=== PATIENT | male | born 1985 | race Caucasian/White ===

== ENCOUNTER 2022-11-03 18:23 | Emergency (ER) | payer OTHER, SELFPAY ==
[2022-11-03 18:26] VITALS: BP 125/68; PULSE 85; RESP 18; O2SAT 100; BMI 27.3
--- NOTE | 2022-11-03 18:26 | ED_ITS ---
HPI - General Adult General Chief complaint: Urogenital-Male Stated complaint: ?std Time Seen by Provider: 11/03/22 18:34 Source: patient Mode of arrival: ambulatory Limitations: no limitations History of Present Illness HPI narrative: 37-year-old male presents to the emergency department seeking STD testing and treatment, tells me he has a weird rash/lesion on his penis. He tells me he is sexually active without protection with a sexual partner, unsure of her STD status. Patient has a history of chlamydia in the past. Denies urinary frequency, urgency, dysuria, fevers, chills, back pain, nausea, vomiting, abdominal pain. Partner without any symptoms. Patient interested in prophylactic treatment for gonorrhea, chlamydia and Trichomonas. Related Data Previous Rx's Medication Instructions Recorded doxycycline hyclate 100 mg capsule 100 mg PO BID 10 days #20 caps 11/03/22 metronidazole 500 mg tablet 500 mg PO BID 7 days #14 tabs 11/03/22 valacyclovir 1 gram tablet 1,000 mg PO TID 10 days #30 tabs 11/03/22 (Valtrex) Allergies Allergy/AdvReac Type Severity Reaction Status Date / Time No Known Allergies Allergy Unverified 06/11/20 17:45 [No Known Allergies*] Review of Systems Review of Systems: Constitutional : No Weight loss, No Fever, No Chills, No Fatigue, No Malaise ENT/Mouth : No sore throat, No Rhinorrhea Eyes: No Eye Pain, No Swelling, No Redness Cardiovascular : No Chest Pain, No SOB, No Dyspnea on Exertion, No Orthopnea, No Edema, No Palpitations Respiratory : No Cough, No Sputum, No Wheezing Gastrointestinal : No Nausea, No Vomiting, No Diarrhea, No Constipation, No abdominal Pain, No Hematochezia, No Melena Genitourinary : No Dysuria, No Urinary Frequency, No Hematuria, Musculoskeletal : No joint pain, No Myalgias, No Joint Swelling Skin : No Skin Lesions, No rash, + lesion on penis Neuro : No Weakness, No Numbness, No Dizziness, No Headache Psych : No Anxiety/Panic, No Depression All other systems reviewed and are negative Yes all other systems are reviewed and are negative PMFSH Past Medical History Attestation statement: The following information was validated with the patient. Source: old records reviewed and nursing notes reviewed Physical Exam ED Vital Signs: Vital Signs - 24 hr 11/03/22 18:26 Pulse Rate 85 Respiratory Rate 18 Blood Pressure 125/68 Pulse Oximetry 100 Oxygen Delivery Method Room Air BMI result Body Mass Index 27.3 Appearance: Alert.? Oriented X3.? No acute distress.? Head: Normocephalic, atraumatic, no step-offs or deformities Eyes: Pupils equal, round and reactive to light.? CVS: Normal heart rate and rhythm.? Pulses normal.? Respiratory: No respiratory distress.? Breath sounds normal.? Abdomen: Soft and nontender.? Skin: Skin warm and dry.? Normal skin color.? Normal skin turgor.? Extremities: No lower extremity edema.? No calf ttp. 5/5 strength to bilateral upper and lower extremities Back: No midline tenderness, no C-spine tenderness, full range of motion, no CVA tenderness bilaterally Neuro: Oriented X 3.? No motor deficit.? No sensory deficit. CN 2-12 intact Sensitive exam: Nasreen SORIANO head of strategy, small ulcer noted to shaft of penis . Normal external genitalia. No lumps, masses or discharge. No pain with palpation of bilateral testicles, no epididymal tenderness. Course Reevaluation(s) Reevaluation #1: Patient received antibiotics here 1st dose, he can start his antibiotics tomorrow. Tolerated well. Urine sent for analysis. Educated patient on diagnosis and treatment plan, answered all question, patient verbalizes understanding. At this time patient will be discharged home, advised to return with new or worsening symptoms. Educated on worrisome signs and symptoms and when to return. At this time I feel comfortable discharge home. Time: 18:33 Medications Administered Discontinued Medications Generic Name Dose Route Start Last Admin Trade Name Gareth PRN Reason Stop Dose Admin Ceftriaxone Sodium 500 mg/ 0 mg 11/03/22 18:27 11/03/22 18:36 Lidocaine HCl 1 ml IM 11/03/22 18:28 1 kit ONCE ONE Administration Doxycycline Monohydrate 100 mg 11/03/22 18:27 11/03/22 18:35 Doxycycline Monohydrate 100 Mg Capsule PO 11/03/22 18:28 100 mg ONCE ONE Administration Metronidazole 500 mg 11/03/22 18:27 11/03/22 18:35 Metronidazole 500 Mg Tablet PO 11/03/22 18:28 500 mg ONCE ONE Administration Medical Decision Making Medical Decision Making MDM Narrative: 37-year-old male presents requesting STD testing and treatment. Physical examination small ulcer to his shaft of penis. No other findings Concerns for possibl STD , versus just traumatic abrasion. Plan at this time STD testing. Patient agrees to prophylactic treatment for gonorrhea, chlamydia and trichomonas. 500mg IM ceftriaxone has been given here and scripts for doxycycline 100 mg po BID X 7 days and metronidazole 500 mg po BID X 7 days have been given to the patient. Educated on safe sex practices, full pannel STD testing and speaking to? partners on possible STD. I will also treat for herpes as patient's exam is concerning for this. Differential Diagnosis Differential Diagnoses: The differential diagnosis associated with the presentation includes Concerns for possibl STD , versus just traumatic abrasion. Herpes Core Measures AMI core measures followed: Yes Measure exclusions: not indicated Critical Care Time Critical Care Time Critical Care Time: No Discharge Plan Discharge Clinical Impression: Screen for STD (sexually transmitted disease) Patient Disposition: Home, Self-Care Additional Instructions: Take your medications as prescribed. If you were prescribed antibiotics today, it is important that you take your medication to their entirety, do not skip any doses, do not finish them early. Follow-up with your primary care provider this week. Return to the emergency department with new or worsening symptoms. Such as fevers, chills, chest pain, shortness of breath, nausea, vomiting, dizziness, headache, vision changes, lethargy In case of emergency call 911 You were treated here today with ceftriaxone, a medication that treats gonorrhea. I have sent to your pharmacy Metronidazole that covers trichomonas, and Doxycycline which covers for chlamydia. Please be reevaluated by a healthcare provider after completing your antibiotics. Do not stop them early, do not skip any doses. Until you are reevaluated by a health care provider please practice safe sex as disucussed. Please also have a conversation with your sexual partners.? I also advise you to obtain full panel STD testing to test for other STDs including HIV, Hepatitis B & C and syphilis with your PCP or a local clinic. Prescriptions: New doxycycline hyclate 100 mg capsule 100 mg PO BID 10 Days Qty: 20 0RF metronidazole 500 mg tablet 500 mg PO BID 7 Days Qty: 14 0RF valacyclovir [Valtrex] 1 gram tablet 1,000 mg PO TID 10 Days Qty: 30 0RF Referrals: Physician,None [Primary Care Provider] - 2 days Stand Alone Forms: Work/School Release
[2022-11-03] MEDS: metroNIDAZOLE 500 MG TABLET PO (18:35)
[2022-11-03] MEDS: Doxycycline Monohydrate 100 MG CAPSULE PO (18:35)
[2022-11-03] MEDS: cefTRIAXone sodium 500 MG, Lidocaine HCl 1 % MPF 1 ML IM (18:36)
[2022-11-03 21:05] LABS: CT PCR NOT DETECTED (Not Detect.); NG PCR NOT DETECTED (Not Detect.)
== END 2022-11-03 18:59 | disposition home or self-care (01) ==
PROVIDERS: Physician Assistant; Emergency Provider Emergency Medicine
DX: Z20.2 Contact with and (suspected) exposure to infections with a predominantly sexual mode of transmission (principal); N48.5 Ulcer of penis
CPT/HCPCS: 0353U; 96372; 99282; 99284; J0696